=== PATIENT | male | born 1940 | race Caucasian/White ===

== ENCOUNTER 2021-04-12 12:11 | Outpatient (CLI) | payer MEDICARE, BC ==
[2021-04-12 23:41] LABS: SARS-CoV-2 PCR by NAA Not Detected (NotDetected)
== END 2021-04-12 12:12 | disposition home or self-care (01) ==
LOC: CSHLAB 12:11
PROVIDERS: ATTEND Internal Medicine Hematology & Oncology
DX: Z20.822 Contact with and (suspected) exposure to COVID-19 (principal); C61 Malignant neoplasm of prostate; C79.51 Secondary malignant neoplasm of bone; R33.9 Retention of urine, unspecified; D70.8 Other neutropenia
CPT/HCPCS: U0003; U0005